=== PATIENT | male | born 1965 | race American Indian/Alaskan Native ===

== ENCOUNTER 2016-11-01 04:06 | Inpatient (IN) | payer MEDICAID ==
--- NOTE | 2016-11-01 04:17 | C.PDOC ---
History Of Present Illness 51 y/o male presents to the ED as a transfer coming from [facility] for suicidal ideation and schizoaffective disorder. The patient denies new symptoms. TRANSFER FROM [facility] FOR SUICIDAL IDEATION, SCHIZOAFFECTIVE DO. PT DENIES NEW SX EXAM PSYCH CALM COOPERATIVE DEPRESSED Time Seen by Provider: 11/01/16 04:16 Chief Complaint (Nursing): Psychiatric Evaluation History Per: Patient, EMS History/Exam Limitations: no limitations Onset/Duration Of Symptoms: Hrs Current Symptoms Are (Timing): Still Present Recent travel outside of the [place]: No Past Medical History Reviewed: Historical Data, Nursing Documentation, Vital Signs Vital Signs: Last Vital Signs Temp 97.7 F 11/01/16 04:10 Pulse 80 11/01/16 04:10 Resp 16 11/01/16 04:10 BP 113/78 11/01/16 04:10 Pulse Ox 100 11/01/16 04:10 Surgical History: No Surg Hx Family History: States: No Known Family Hx Review Of Systems Except As Marked, All Systems Reviewed And Found Negative. Constitutional: Negative for: Fever, Chills Gastrointestinal: Negative for: Nausea, Vomiting Neurological: Negative for: Headache Psych: Positive for: Suicidal ideation Physical Exam - Physical Exam Appears: Other (calm, cooperative, depressed) Skin: Normal Color, Warm, Dry Head: Atraumatic, Normacephalic Oral Mucosa: Moist Neck: Supple Chest: Symmetrical Cardiovascular: Rhythm Regular Respiratory: Normal Breath Sounds, No Accessory Muscle Use, No Wheezing Gastrointestinal/Abdominal: Soft, No Tenderness, No Guarding, No Rebound Extremity: Normal ROM, Capillary Refill (<2sec.) Neurological/Psych: Oriented x3, Normal Speech, Normal Cognition ED Course And Treatment Pulse Ox Interpretation: Normal Medical Decision Making Medical Decision Making: Admitting physician made aware of patient's arrival to the ER. Disposition Counseled Patient/Family Regarding: Diagnosis - Disposition Disposition: HOSPITALIZED Disposition Time: 04:16 Condition: STABLE - POA Present On Arrival: None - Clinical Impression Clinical Impression: Suicidal ideation, Schizoaffective disorder - Scribe Statement The provider has reviewed the documentation as recorded by the Mpibvernon Bailey All medical record entries made by the Mpibvernon were at my direction and personally dictated by me. I have reviewed the chart and agree that the record accurately reflects my personal performance of the history, physical exam, medical decision making, and the department course for this patient. I have also personally directed, reviewed, and agree with the discharge instructions and disposition. Decision To Admit - Pt Status Changed To: Hospital Disposition Of: Inpatient - Admit Certification Admit to Inpatient:: After my assessment, the patient will require hospitalization for at least two midnights. This is because of the severity of symptoms shown, intensity of services needed, and/or the medical risk in this patient being treated as an outpatient. - InPatient: Physician Admission Certification: I certify that this patient requires 2 or more midnights of care for the following reason:: SEE NOTE - . Bed Request Type: Psychiatry Admitting Physician: Rolo White Patient Diagnosis: Suicidal ideation, Schizoaffective disorder
[2016-11-01 04:25] VITALS: O2SAT 100; BMI 29.5
--- NOTE | 2016-11-01 04:39 | PCM.BM ---
<Samantha Barrientos - Last Filed: 11/01/16 04:37> Treatment Plan Problems - Problems identified on initial assessmt depression Date Initiated: 11/01/16 Time Initiated: 04:45 Assessment reference: NA Treatment assets and liabiliti Patient Assests: cooperative, ADL independent, negotiates basic needs Patient Liabilities: financial problems, auditory impairment - Milieu Protocol Maintain good personal hygiene: daily Encourage regular showers, daily Remind patient to perform daily oral care, daily Assist patient to perform ADL's Conduct patient checks and document Observation sheet: Q15 minutes Maintain personal safety: every shift Educate patient to report safety concerns to staff, every shift Monitor environment for contraband/sharps Medication safety: Monitor for expected outcome, potential side effects: every shift, Assess barriers to learning: every shift, Assess readiness for medication education: every shift <Leyla Daigle - Last Filed: 11/01/16 11:42> Family Contact Family involvement: Family/SO is involved Family contact: Patient declines to allow family contact at present - Goals for Treatment Patient goals for treatment: "I need a program." Discharge/Continuing Care - Education Needs Education Needs: Patient Medication, Patient Coping Skills - Discharge Discharge Criteria: Tolerates medication w/o severe side effects, Free of Suicidal thoughts Discharge to:: Home - Treatment Team Participation Discussed with Family/SO: No Was Patient/Family/SO present at Treatment Team Meeting: Yes <CindyRolo - Last Filed: 11/02/16 10:34> - Diagnosis (1) Schizoaffective disorder Status: Acute Interventions: 11/02/16 10:34 * Assess/adjust medications daily and /or as needed * See patient on an individual basis 7x/week to assess symptoms of depression * Monitor for side effects & effectiveness of medications * * Assess/adjust medications daily and /or as needed * Discuss risks, benefits, sided effects and alternatives of medications * See patient on an individual basis 7x/week to assess level of delusional thoughts/ideation *
[2016-11-01] MEDS: Pantoprazole 20 mg EC Tab PO SCH (09:57)
[2016-11-01] MEDS ORDERED: (Lantus) Insulin Glargine, Recombinant SC SCH ×2 (10:00→22:00)
[2016-11-01] MEDS ORDERED: Albuterol HFA 90 mcg/actuation (8 g) INH PRN (11:21)
[2016-11-01] MEDS ORDERED: (Lantus) Insulin Glargine, Recombinant SC ONE ×2 (12:15→12:30)
--- NOTE | 2016-11-01 14:23 | PCM.PSYCH ---
Initial Psychiatric Evaluation - Initial Psychiatric Evaluation Type of Admission: Voluntary Legal Status: Capacity Chief Complaint (in patient's own words): "I had depression for awhile." History of Present Illness and Precipitating Events: The pt. is seen, chart reviewed, and case discussed with staff. Pt. is 51 /yo male who presented to ED as a transfer from [facility] for suicidal ideation and schizoaffective disorder. Pt. reports the main stressor for his depression is his diabetes that he had for a long time. Pt. reports suicidal and homicidal ideation, but denies making any plans to kill himself or others and contracts for safety here. He denies past suicidal attempts. Pt. denies visual and auditory hallucinations. Pt. reports being unable to sleep well at night and exhibits moderate irritability. Pt. denies use of drugs and alcohol. 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 Pt. plans to find a therapist after detox. Current Medications: Active Medications Generic Name Dose Route Start Last Admin Trade Name Freq PRN Reason Stop Dose Admin Albuterol 1 puff 11/01/16 11:21 Ventolin Hfa 90 Mcg/Actuation (8 G) INH RQ4 PRN SOB Aripiprazole 5 mg 11/01/16 22:00 Abilify PO HS TARIK Aspirin 81 mg 11/01/16 10:00 11/01/16 09:49 Ecotrin PO 81 mg DAILY TARIK Administration Clonidine HCl 0.2 mg 11/01/16 10:00 11/01/16 09:57 Catapres PO 0.2 mg BID TARIK Administration Gabapentin 300 mg 11/01/16 10:00 11/01/16 13:07 Neurontin PO 300 mg TID TARIK Administration Hydroxyzine HCl 50 mg 11/01/16 08:47 Atarax PO Q6H PRN Anxiety Ibuprofen 600 mg 11/01/16 08:47 Motrin Tab PO Q6H PRN Pain, moderate (4-7) Insulin Glargine 20 unit 11/01/16 22:00 Lantus SC HS TARIK Insulin Glargine 40 unit 11/02/16 10:00 Lantus SC DAILY TARIK Lisinopril 20 mg 11/01/16 10:00 11/01/16 09:57 Zestril PO 20 mg DAILY TARIK Administration Metformin HCl 500 mg 11/01/16 10:00 11/01/16 09:49 Glucophage PO 500 mg BID TARIK Administration Pantoprazole Sodium 20 mg 11/01/16 10:00 11/01/16 09:57 Protonix Ec Tab PO 20 mg DAILY TARIK Administration Quetiapine Fumarate 200 mg 11/01/16 22:00 Seroquel PO HS [facility] Rosuvastatin Calcium 10 mg 11/01/16 22:00 Crestor PO HS TARIK Trazodone HCl 100 mg 11/01/16 08:47 Desyrel PO HS PRN Insomnia Past Psychiatric History - Past Psychiatric History Pertinent Medical Hx (Current Medical&Sleep Prob, Allergies): Allergies Allergy/AdvReac Type Severity Reaction Status Date / Time Penicillins Allergy Verified 11/01/16 04:29 seafood Allergy Uncoded 11/01/16 04:29 Aspirin [Ecotrin] 81 mg PO DAILY 11/01/16 Gabapentin [Neurontin] 300 mg PO TID 11/01/16 Insulin Glargine, Recombina [Lantus] 20 unit SC DAILY 11/01/16 Insulin Glargine,Hum.rec.anlog [Lantus] 40 unit SQ HS 11/01/16 Lipitor 11/01/16 Lisinopril [Zestril] 20 mg PO DAILY 11/01/16 Pantoprazole Sodium [Protonix] 20 mg PO DAILY 11/01/16 QUEtiapine [SEROquel] 200 mg PO DAILY 11/01/16 Quetiapine Fumarate [Seroquel] 400 mg PO HS 11/01/16 Risperdal 11/01/16 Zoloft 11/01/16 cloNIDine [clonidine HCl] 0.2 mg PO BID 11/01/16 metFORMIN [glucOPHAGE] 500 mg PO BID 11/01/16 Review of Systems - Neurological Neurological: UNREMARKABLE - Psychiatric Psychiatric: Abnormal Sleep Pattern, Anhedonia, Anxiety, Depression, Difficulty Concentrating, Irritability Mental Status Examination - Personal Presentation Personal Presentation: Looks stated age - Affect Affect: Constricted - Motor Activity Motor Activity: Calm - Reliability in Providing Information Reliability in Providing Information: Good - Speech Speech: Organized - Mood Mood: Depressed, Anxious, Homicidal Ideation - Formal Thought Process Formal Thought Process: No Impairment - Obsessions/Compulsions Obsessions: No Compulsions: No - Cognitive Functions Orientation: Person, Place, Situation, Time Sensorium: Alert Attention/Concentration: Attentive Estimate of Intelligence: Average Judgement: Intact, as evidence by: Insight regarding need for hospitalization Memory: Recent intact, as evidence by: Ability to recall events of the day - Risk Risk: Diminished functioning - Strength & Assets Inventory Strength & Assets Inventory: Cooperative - Limitations Limitations: Living alone DSM 5 DX - DSM 5 DSM 5 Diagnosis: Schizoaffective d/o-depressed - Recommended/Plan of Treatment Treatment Recommendations and Plan of Treatment: Schizoaffective d/o-depressed CBT Psychoeducation Supportive therapy, group therapy, individual therapy Abilify 5 mg PO HS 31 min Projected ELOS: 6-7 days Prognosis: good with treatment - Smoking Cessation Smoking Cessation Initiated: No
[2016-11-01] MEDS: (Lantus) Insulin Glargine, Recombinant SC SCH (21:48)
[2016-11-02] MEDS: (Lantus) Insulin Glargine, Recombinant SC SCH ×2 (09:22→21:37)
[2016-11-02] MEDS: Pantoprazole 20 mg EC Tab PO SCH (09:22)
[2016-11-03] MEDS: (Lantus) Insulin Glargine, Recombinant SC SCH ×2 (09:16→21:28)
[2016-11-03] MEDS: Pantoprazole 20 mg EC Tab PO SCH ×2 (09:16→10:22)
[2016-11-03] MEDS ORDERED: QUEtiapine 200 mg XR Tab PO SCH (10:00)
[2016-11-04] MEDS: (Lantus) Insulin Glargine, Recombinant SC SCH ×2 (09:43→21:46)
[2016-11-04] MEDS: Pantoprazole 20 mg EC Tab PO SCH (09:43)
--- NOTE | 2016-11-04 23:07 | PCM.PYCHPN ---
Psychiatric Progress Note - Psychiatric Progress Note Patient seen today, length of contact: 15 MIN Patient Chief Complaint: I WANT THE SAME MEDS I HAD AT [facility]. THEY WORKED WELL. Problems Identified/Issues Discussed: RELAPSE PREVENTION MEDICATION ADHERENCE Medical Problems: NOTHING ACUTE Diagnostic Results: REVIWED DSM 5 Symptoms Update: IRRITABLE Medication Change: Yes (SEROQUEL RISPERDAL [place]) Medical Record Reviewed: Yes Mental Status Examination - Cognitive Function Orientation: Place, Situation, Time Memory: Intact Attention: WNL Fund of Knowledge: WNL - Mood Mood: Depressed, Anxious, Other Additional comments: IRRITABLE - Affect Affect: Constricted - Speech Speech: Appropriate - Formal Thought Process Formal Thought Process: No Impairment - Suicidal Ideation Suicidal Ideation: No - Homicidal Ideation Homicidal Ideation: No Goal/Treatment Plan - Goal/Treatment Plan Need for Continued Stay: Remain at risks for inpatient hospitalization, Discharge may exacerbated symptoms Progress Toward Problem(s) and Goals/Treatment Plan: SCHIZOAFFECTIVE DISORDER SEROQUEL RISPERDAL [place] GROUP [facility] RECREATIONAL THERAPY MEDICATION EDUCATION SUPPORTIVE PSYCHOTHERAPY Estimated Date of D/C: 11/08/16 - Smoking Cessation Smoking Cessation Initiated: No
--- NOTE | 2016-11-04 23:13 | PCM.PYCHPN ---
Psychiatric Progress Note - Psychiatric Progress Note Patient seen today, length of contact: 15 MIN Patient Chief Complaint: THERE IS NO STRUCTURE HERE, NO GROUPS NOT EVEN A DECK OF CARDS Problems Identified/Issues Discussed: ABILITY TO STAY FOCUSED Medical Problems: NOTHING ACUTE Diagnostic Results: REVIEWED DSM 5 Symptoms Update: IRRITABLE Medication Change: No (SEROQUEL RISPERDAL [place]) Medical Record Reviewed: Yes Mental Status Examination - Cognitive Function Orientation: Person, Place, Situation, Time Memory: Intact Attention: WNL Concentration: WNL Association: WN Fund of Knowledge: WN - Mood Mood: Depressed, Anxious, Other Additional comments: STILL IRRITABLE - Affect Affect: Constricted - Speech Speech: Appropriate - Formal Thought Process Formal Thought Process: No Impairment - Suicidal Ideation Suicidal Ideation: No - Homicidal Ideation Homicidal Ideation: No Goal/Treatment Plan - Goal/Treatment Plan Need for Continued Stay: Remain at risks for inpatient hospitalization, Discharge may exacerbated symptoms Progress Toward Problem(s) and Goals/Treatment Plan: SCHIZOAFFECTIVE DISORDER SEROQEL RISPERDAL [place] INDIVIDUAL PSYCHOTHERAPY GROUP , [facility], RECREATIONAL THERAPY SUPPORTIVE PSYCHOTHERAPY Estimated Date of D/C: 11/08/16 - Smoking Cessation Smoking Cessation Initiated: No
--- NOTE | 2016-11-04 23:19 | PCM.PYCHPN ---
Psychiatric Progress Note - Psychiatric Progress Note Patient seen today, length of contact: 15 MIN Patient Chief Complaint: WHO SAID I WAS REFUSING MEDS? Problems Identified/Issues Discussed: NURSES REPORTED PT WAS REFUSING MEDS, FSBS, ETC. PT SATED HE WAS TAKING MEDS . HE ALSO RELAGTED THAT MEDS ARE GIVEN DIFFERENTLY AT NIGHT THAN THE MORNING. HE ALSO DECLARED I TRY FOR 2 DAYS TTO GET THE MEDS I WANTED WHY WOULD I REFUSE THEM Medical Problems: NOTHING ACUTE Diagnostic Results: REVIEWED Medication Change: No Medical Record Reviewed: Yes Mental Status Examination - Cognitive Function Orientation: Place, Situation, Time Memory: Intact Attention: WNL Association: WNL - Mood Mood: Other Additional comments: IRRITABLE - Affect Affect: Constricted - Speech Speech: Appropriate - Formal Thought Process Formal Thought Process: No Impairment - Suicidal Ideation Suicidal Ideation: No - Homicidal Ideation Homicidal Ideation: No Goal/Treatment Plan - Goal/Treatment Plan Need for Continued Stay: Discharge may exacerbated symptoms Progress Toward Problem(s) and Goals/Treatment Plan: SAD-DEPRESSED SEROQUEL RISPERDAL [place] SUPPORTIVE PSYCHOTHERAPY [place] CBT Estimated Date of D/C: 11/08/16 - Smoking Cessation Smoking Cessation Initiated: No
[2016-11-05] MEDS: Pantoprazole 20 mg EC Tab PO SCH (10:13)
--- NOTE | 2016-11-05 15:45 | PCM.PYCHPN ---
Psychiatric Progress Note - Psychiatric Progress Note Patient seen today, length of contact: 15 MIN Patient Chief Complaint: "I feel better than before." Problems Identified/Issues Discussed: The pt. is seen, chart reviewed, case discussed with staff. Support given, CBT and [place] used briefly. Pt. is compliant with medications and reports no side-effects. Symptoms are improving but needs more time to stabilize. After care discussed. Pt. desires to leave tomorrow or at the latest. He says he will be going to outpatient in "[facility] [address] (unspecified, not searchable) Medication Change: Yes (DC risperdal as he is already on seroquel 600 mg) Medical Record Reviewed: Yes Mental Status Examination - Cognitive Function Orientation: Place, Situation, Time Memory: Intact Attention: WNL Concentration: WNL Association: WNL Fund of Knowledge: WNL - Mood Mood: Depressed, Anxious - Affect Affect: Broad - Speech Speech: Appropriate - Formal Thought Process Formal Thought Process: No Impairment - Suicidal Ideation Suicidal Ideation: No - Homicidal Ideation Homicidal Ideation: No Goal/Treatment Plan - Goal/Treatment Plan Need for Continued Stay: Discharge may exacerbated symptoms, Severe functional impairment Progress Toward Problem(s) and Goals/Treatment Plan: Schizoaffective d/o-depressed CBT Psychoeducation Supportive therapy, group therapy, individual therapy Abilify 5 mg PO HS dc'ed risperdal which was started this weekend dc'ed Seroquel 200 mg PO DAILY, 400 hs Risperdal 2 mg PO BID Estimated Date of D/C: 11/07/16 - Smoking Cessation Smoking Cessation Initiated: No
[2016-11-05] MEDS: (Lantus) Insulin Glargine, Recombinant SC SCH (21:22)
[2016-11-06] MEDS: (Lantus) Insulin Glargine, Recombinant SC SCH ×3 (11:28→21:47)
[2016-11-06] MEDS: Pantoprazole 20 mg EC Tab PO SCH (11:30)
--- NOTE | 2016-11-06 14:56 | PCM.PYCHPN ---
Psychiatric Progress Note - Psychiatric Progress Note Patient seen today, length of contact: 15 min. Patient Chief Complaint: "I feel good." Problems Identified/Issues Discussed: The pt. is seen, chart reviewed, case discussed with staff. Pt. denies anxiety, chills, and irritability. Pt. also denies suicidal and homicidal ideation and denies visual and auditory hallucinations. Pt. claims he slept well throughout the night. Support given, CBT and [place] used briefly. Pt. is compliant with medications and reports no side-effects. No new symptoms reported, improving slowly, and needs more time. After care discussed. Pt. desires to leave tomorrow. He states he will follow up with his own doctor. He is to find a therapist too as he doesn;t want our help in that. He claims he knows one (has an address but no name) Medication Change: Yes (risperdal was stopped already) Medical Record Reviewed: Yes Mental Status Examination - Cognitive Function Orientation: Place, Situation, Time Memory: Intact Attention: WNL Concentration: WNL Association: WNL Fund of Knowledge: WNL - Mood Mood: Neutral - Affect Affect: Broad - Speech Speech: Appropriate - Formal Thought Process Formal Thought Process: No Impairment - Suicidal Ideation Suicidal Ideation: No - Homicidal Ideation Homicidal Ideation: No Goal/Treatment Plan - Goal/Treatment Plan Need for Continued Stay: Discharge may exacerbated symptoms, Severe functional impairment Progress Toward Problem(s) and Goals/Treatment Plan: Schizoaffective d/o-depressed CBT Psychoeducation Supportive therapy, group therapy, individual therapy Abilify 5 mg PO HS dc'ed Risperdal which was started this weekend dc'ed Seroquel 200 mg PO DAILY, 400 hs Estimated Date of D/C: 11/07/16 - Smoking Cessation Smoking Cessation Initiated: No
[2016-11-07 07:32] VITALS: BP 112/75; PULSE 103; RESP 18; TEMP 97.8
--- NOTE | 2016-11-07 09:52 | PCM.PYCHDC ---
Mental Status Examination - Mental Status Examination Orientation: Person, Place, Situation, Time Memory: Intact Mood: Anxious Affect: Constricted Speech: Appropriate Attention: WNL Concentration: WNL Association: WNL Fund of Knowledge: WNL Formal Thought Process: No Impairment Suicidal Ideation: No Current Homicidal Ideation?: No Discharge Summary - Discharge Note Laboratory Data: Abnormal Lab Results 11/06/16 11/07/16 16:12 08:16 POC Glucose (mg/dL) 345 H 280 H Consultations:: List each consultation separately and include: 1. Reason for request. 2. Findings. 3. Follow-up Summary of Hospital Course include:: 1. Description of specific treatment plan utilized for patients during their course of treatmen. 2. Summarize the time- course for resolution of acute symptoms and/or regressed behaviors. 3. Describe issues identified and worked on during hospitalization. 4. Describe medication utilized. 5. Describe medical problems identified and treated. 6. Reassessment of suicide risk Summary of Hospital Course: The pt. is seen, chart reviewed, and case discussed with staff. On admission: Pt. is 51 /yo male who presented to ED as a transfer from [facility] for suicidal ideation and schizoaffective disorder. Pt. reports the main stressor for his depression is his diabetes that he had for a long time. Pt. reports suicidal and homicidal ideation, but denies making any plans to kill himself or others and contracts for safety here. He denies past suicidal attempts. Pt. denies visual and auditory hallucinations. Pt. reports being unable to sleep well at night and exhibits moderate irritability. Pt. denies use of drugs and alcohol. 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 Pt. plans to find a therapist after detox. Hospital course: The pt was admitted and started on treatment with psychotherapy, support, psychoeducation and medications. HI and CBT used. The pt attended groups and activities, as well as milieu therapy. All the risks and benefits of medications are discussed and the patient understood and agreed. The pt improved with the treatments provided. He remained irate a long time though After care discussed with the patient. He just wanted to return to his psychiatrist in [place]. name? - Final Diagnosis (DSM 5) Condition upon Discharge: STABLE DSM 5: Schizoaffective d/o-depressed Disposition: HOME/ ROUTINE Follow-up Treatment Plan: Continue below medications after discharge. Follow after care plan as discussed. Use relapse prevention skills Return to ER or call 911 if suicidal, homicidal or symptoms relapse. Stay away from stress, alcohol and drugs. See primary doctor once a year. Prescriptions/Medication Reconciliation: Albuterol HFA [Ventolin HFA 90 mcg/actuation (8 g)] 1 puff INH RQ4 PRN #1 inhaler PRN Reason: SOB ARIPiprazole [Abilify] 5 mg PO HS #30 tab cloNIDine [Catapres] 0.2 mg PO BID #60 tab Gabapentin [Neurontin] 300 mg PO TID #90 cap Lisinopril [Zestril] 20 mg PO DAILY #30 tab metFORMIN [glucOPHAGE] 500 mg PO BID #60 tab Pantoprazole [Protonix EC Tab] 20 mg PO DAILY #30 ect QUEtiapine [Seroquel] 200 mg PO DAILY #30 tab QUEtiapine [SEROquel] 400 mg PO HS #30 tab traZODone [Desyrel] 100 mg PO HS PRN #30 tab PRN Reason: Insomnia
[2016-11-07] MEDS: (Lantus) Insulin Glargine, Recombinant SC SCH (10:22)
[2016-11-07] MEDS: Pantoprazole 20 mg EC Tab PO SCH (10:28)
== END 2016-11-07 13:18 | disposition home or self-care (01) | DRG 430 ==
LOC: C.ER 04:06 → C.5E 04:17
PROVIDERS: ADMIT Psychiatry & Neurology Psychiatry; ATTEND Psychiatry & Neurology Psychiatry
PROC: GZHZZZZ Group Psychotherapy (ICD-10-PCS; principal; 2016-11-01)
PROC: GZ58ZZZ Individual Psychotherapy, Cognitive-Behavioral (ICD-10-PCS; 2016-11-01)
PROC: GZ56ZZZ Individual Psychotherapy, Supportive (ICD-10-PCS; 2016-11-01)
DX: F25.9 Schizoaffective disorder, unspecified (principal); R45.851 Suicidal ideations; E11.9 Type 2 diabetes mellitus without complications; I10 Essential (primary) hypertension; J45.909 Unspecified asthma, uncomplicated; E78.00 Pure hypercholesterolemia, unspecified